=== PATIENT | female | born 1995 | race Caucasian/White ===

== ENCOUNTER → 2024-01-22 14:20 | Outpatient (CLI) | payer BC, SELFPAY ==
--- NOTE | 2024-01-22 | DI.US.S_ITS ---
PROCEDURE: US OB <= 14 WEEKS FETUS INDICATIONS: DATING/VIABILITY OUTSIDE/PRIOR DATING DATA: Unknown TECHNIQUE: Real-time scanning was performed of the fetus and maternal pelvic organs, with image documentation. Endovaginal scanning was also performed to better visualize the fetus and maternal ovaries. COMPARISON: None. FINDINGS: No intrauterine gestational sac visualized. There is a complex mass abutting the endometrium measuring 9.4 x 9.5 x 10.0 cm. Right ovarian cyst with daughter follicle measuring 4.6 cm. No adnexal mass. Right ovary measures 3.7 x 1.5 x 2.9 cm, volume of 8.6 mL. Left ovary measures 5.2 x 3.0 x 5.7 cm, volume of 47 mL. IMPRESSION: of unknown location, as no intrauterine is seen and there is no adnexal mass. The differential includes early gestational , ectopic or miscarriage. Trending beta hCGs and sonographic follow-up as necessary. Complex mass abutting the endometrium measuring 9.4 x 9.5 x 10.0 cm. This does not have the typical shadowing characteristics of a fibroid. The mass does not appear to be within the endometrium, but the size may obscure this. Differential includes adenomyosis, atypical fibroid, retained products of conception or less likely a chorionic malignancy. Correlate with beta HCG anterior term follow-up is recommended. We strive to produce accurate, complete, and clear reports of imaging services. To assist us in improving patient care, this report was composed using standard report templates and voice recognition software. Therefore, it may contain abnormal punctuation, insertions and/or omissions. Occasional wrong-word or sound-alike substitutions may occur. Though we review the report and make efforts to correct it, we do recommend that the report be read carefully in proper context to recognize any text inaccuracies. Dictated by: Good Graff M.D. on 01/22/2024 at 17:32 Approved by: Good Graff M.D. on 01/22/2024 at 17:36
== END ==
PROVIDERS: Referring Provider Advanced Practice Midwife; Visit Provider Advanced Practice Midwife
DX: O36.80X0 Pregnancy with inconclusive fetal viability, not applicable or unspecified (principal); N85.9 Noninflammatory disorder of uterus, unspecified
CPT/HCPCS: 76801

== ENCOUNTER → 2024-01-24 08:29 | Outpatient (CLI) | payer BC, SELFPAY ==
[2024-01-24 09:39] LABS: Add Manual Diff / Slide Review NO; Basophils Absolute Auto 0 /uL (0-100); Basophils Percent Auto 0.4 % (0-2); Eosinophils Absolute Auto 100 /uL (0-450); Eosinophils Percent Auto 1.7 % (2-4); Hematocrit 45.5 % (36-46); Hemoglobin 15.2 g/dL (12.0-16.0); Lymphocytes Absolute Auto 2000 /uL (1100-4500); Lymphocytes Percent Auto 34.6 % (25-40); Mean Corpuscular HGB Conc 33.5 % (30-36); Mean Corpuscular Hemoglobin 27.4 PG (26-34); Mean Corpuscular Volume 81.8 fL (80-100); Monocytes Absolute Auto 600 /uL (0-900); Monocytes Percent Auto 10.2 % (3-14); Neutrophils Absolute Auto 3100 /uL (1500-7000); Neutrophils Percent Auto 53.1 % (50-75); Platelet Count 273 X10^3/uL (150-400); Red Blood Cell Count 5.56 X10^6/uL (4.0-5.2); Red Cell Distribution Width 13.1 % (11.6-14.8); White Blood Cell Count 5.7 X10^3/uL (4.5-11.0)
[2024-01-24 10:32] LABS: Cancer Antigen 125 22.4 U/mL (0-35); Carcinoembryonic Antigen 0.5 ng/mL (0.1-3.0)
[2024-01-25 08:36] LABS: Alpha Fetoprotein 1.8 ng/mL (0.0-4.7)
== END ==
PROVIDERS: Referring Provider Advanced Practice Midwife; Visit Provider Advanced Practice Midwife
DX: R19.09 Other intra-abdominal and pelvic swelling, mass and lump (principal)
CPT/HCPCS: 36415; 82105; 82378; 83520; 85025; 86304; 86305

== ENCOUNTER 2024-01-31 07:36 | Day surgery (SDC) | payer BC, SELFPAY ==
[2024-01-31] VITALS (11 sets, daily range): BP systolic 88–133; BP diastolic 43–85; PULSE 61–87; RESP 11–16; TEMP 36.2–36.9; O2SAT 96–100; BMI 25.7
--- NOTE | 2024-01-31 | PATH_ITS ---
[facility] Accession Number: [id number] No. of containers..01 Tissue . 01 Material submitted: . endometrium - ENDOMETRIAL CONTENTS . 01 Diagnosis: ENDOMETRIAL CONTENTS: Portions of proliferative endometrium with features of breakdown and shedding; negative for endometrioid intraepithelial neoplasia or malignancy. Some endometrial fragments demonstrate prominent vessels, suggestive of polyp, if clinical and imaging studies are concordant. Scattered, poorly preserved hyalinized tissue fragments suggestive of possible benign placental site nodule. Fragments of myometrium; negative for significant atypia. MRV 02/06/2024 0823 Local . 01 Electronically signed: . Estefany Puga MD, Pathologist NPI- [id number] . 01 Gross description: . Received in formalin with two identifiers and endometrial contents, are forman to brown spongy to membranous soft tissue fragments aggregating to 2.7 x 2.5 x 0.5 cm. No tissue is identified. The specimen is submitted entirely in cassettes A1-A2. ([id number]) /VINICIO 02/05/2024 0633 Local . 01 Pathologist provided ICD-10: N94.89, O02.1 . 01 CPT . 719733 Specimen Comment: A courtesy copy of this report has been sent to [facility] Pathology Performed at: [address] [facility], [place], [place] [id number] MD Moiz Perry MD Phone: [phone]
--- NOTE | 2024-01-31 07:58 | PM.PREOP ---
Pre-operative Note Interval Note History & Physical reviewed/Exam performed by Physician: Yes Changes to H&P: No ASA Class (for procedural sedation): II
[2024-01-31] MEDS: CEFAZOLIN 2 GM/100 ML PREMIX 100 ML IV (08:10)
[2024-01-31] MEDS: LACTATED RINGERS 1,000 ML 42 ML IV (08:11)
[2024-01-31] MEDS: ACETAMINOPHEN 325 MG TABLET 975 MG PO (08:11)
--- NOTE | 2024-01-31 08:42 | SUR.OPER ---
Lithotomy on padded OR bed, head on pillow, arms secured on padded arm boards at <90 degrees abduction. Legs secured in padded yellow fins stirrups.
[2024-01-31 08:55] LABS: Add Manual Diff / Slide Review NO; Basophils Absolute Auto 0 /uL (0-100); Basophils Percent Auto 0.3 % (0-2); Eosinophils Absolute Auto 100 /uL (0-450); Eosinophils Percent Auto 1.1 % (2-4); Hematocrit 42.5 % (36-46); Hemoglobin 14.4 g/dL (12.0-16.0); Lymphocytes Absolute Auto 2000 /uL (1100-4500); Lymphocytes Percent Auto 32.3 % (25-40); Mean Corpuscular HGB Conc 33.9 % (30-36); Mean Corpuscular Hemoglobin 27.5 PG (26-34); Mean Corpuscular Volume 81.1 fL (80-100); Monocytes Absolute Auto 600 /uL (0-900); Neutrophils Absolute Auto 3500 /uL (1500-7000); Neutrophils Percent Auto 56.3 % (50-75); Platelet Count 239 X10^3/uL (150-400); Red Blood Cell Count 5.24 X10^6/uL (4.0-5.2); Red Cell Distribution Width 13.2 % (11.6-14.8); White Blood Cell Count 6.3 X10^3/uL (4.5-11.0)
[2024-01-31 09:23] LABS: HCG Quantitative /Beta subunit 5.52 mIU/mL
[2024-01-31] MEDS: TRANEXAMIC ACID 1,000 MG VIAL 1000 MG INJ (09:33)
--- NOTE | 2024-01-31 10:20 | P.OP_ITS ---
Operative Date/Time/Diagnoses Date of procedure: 01/31/24 Time of procedure: 09:00 Pre-op diagnosis: endometrial mass, suspected retained products of conception Post-op diagnosis: same Procedure & Clinicians Procedure: hysteroscopy, dilation and curettage Same procedure as scheduled: Yes Indications: endometrial mass with +bHCG <20, retained products of conception Surgeon: Lucy Brady Click Yes if Unassisted: Yes Anesthesia Type: General Operative Notes Findings: normal external female genitalia, perineum and anus vagina and cervix visually wnl, external os closed uterus approx 10-12wga on preoperative bimanual exam, 6-8wks on postoperative exam intrauterine cavity visualized including bilateral ostia noted calcified adherent placenta at level of L cornua and extending laterally to level of internal os with areas of increased vascularization Closure Type: not applicable Specimen(s): other (endometrial contents ) Estimated Blood Loss (mL): 100 Procedure in detail: Pt was taken to the operating room, transferred to OR table and anesthesia was induced with placement of LMA.? Pt had her legs placed in Denis stirrups and an exam under anesthesia was performed. The patient was prepped and draped in a sterile fashion.? A time out was performed. ?The bladder was emptied via straight catheter in sterile fashion.? A sterile speculum was inserted into the vagina.? The cervix was visualized and grasped anteriorly using a single tooth tenaculum.? The uterus sounded to 12cm and the cervical os was serially dilated using Liao dilators up to 17f to allow for passage of the hysteroscope.? The 5mm 0 degree hysteroscope was then inserted into the uterus with findings as noted.? The small Myosure device was introduced and the \visualized pathology was fractionally resected under direct visualization taking care not to denude the underlying endometrium. At this time visualization was lost and 8f suction D&C catheter introduced for additional 3 passes with return of tissue visualized. The hysteroscope was removed and the uterus was gently curetted con firming gritty texture throughout without concerns for persistent retained products of conception. IV TXA administered during suction D&C portion of case subsequent to brisk bleeding with appropriate resolution.? The tenaculum was removed and hemostasis was noted at insertion sites.? The speculum was removed and hemostasis was again noted to be excellent.? Bimanual massage performed with noted interval decrease in size of uterus and excellent tone. The patient then had her legs taken out of stirrups.? The patient tolerated the procedure well and without difficulty.? The patient was awakened from anesthesia and taken to PACU in stable condition. .? Complications: none Post-operative Condition: stable Disposition: PACU Plan for aftercare: discharge to home, routine postoperative follow-up thereafter
[2024-01-31] MEDS: SODIUM CHLORIDE 0.9% 1,000 ML 84 ML IV (10:33)
--- NOTE | 2024-01-31 11:09 | SUR.PHASEII ---
Patient ambulated to bathroom with assistance of . Denies any pain or nausea. Waiting on re-evaluation by Dr Brady.
== END 2024-01-31 11:57 | disposition home or self-care (01) ==
PROVIDERS: PCP Nurse Practitioner; Referring Provider Obstetrics & Gynecology; Visit Provider Obstetrics & Gynecology
PROC: 0UDB8ZZ Extraction of Endometrium, Via Natural or Artificial Opening Endoscopic (ICD-10-PCS; CPT 58558; principal; 2024-01-31 09:00)
DX: R19.09 Other intra-abdominal and pelvic swelling, mass and lump (principal); O43.899 Other placental disorders, unspecified trimester
CPT/HCPCS: 59820; 36415; 84702; 85025; 86850; 86900; 86901; J0690; J1100; J2250; J2405; J2704; J3010